=== PATIENT | female | born 1935 | race African-American/Black ===

== ENCOUNTER 2017-12-24 11:41 | Emergency (ER) | payer OTHER, MEDICARE ==
[~2017-12-24] VITALS: Ht 152.4 cm; Wt 79.4 kg
--- NOTE | 2017-12-24 12:03 | ED GI/GU/ABDOMINAL COMPLAINT ---
History of Present Illness General Chief Complaint: General Adult Stated Complaint: RIGHT SIDED FLANK PAIN Source: patient, family, old records Exam Limitations: no limitations Vital Signs & Intake/Output Vital Signs & Intake/Output Vital Signs Date Time Temp Pulse Resp B/P B/P Pulse O2 O2 Flow FiO2 Mean Ox Delivery Rate 12/24 1422 97.9 68 18 174/74 95 Room Air 12/24 1226 80 18 173/82 95 Room Air 12/24 1155 97.8 80 18 207/93 97 Room Air Allergies Coded Allergies: NO KNOWN ALLERGIES (12/03/13) Reconcile Medications Atorvastatin Calcium (Lipitor) 40 MG TABLET 1 TAB PO DAILY CHOLESTEROL ( Reported) Ramipril (Altace) 5 MG CAPSULE 2 CAP PO DAILY UNKNOWN (Reported) Triage Note: PT BIBA C/O RIGHT SIDED FLANK PAIN 03/28. PT ALSO C/O OF WEAKNESS AND STATES THAT SHE IS SOB ALL THE TIME. PT DID NOT TAKE HER BP MEDICATIONS THIS AM AND PER EMS BP 200/110 Triage Nurses Notes Reviewed? yes ? N Is pt currently ? No Onset: Abrupt Duration: week(s): (3), constant, continues in ED Quality/Severity: moderate, sharpness Location: right lower quadrant Radiation: no radiation Activities at Onset: none Prior Abdominal Problems: none No Modifying Factors: none HPI: 82-year-old female comes into the emergency room for further evaluation of right -sided abdominal pain. Symptoms been going on for the past 3 weeks. She reports increased frequency of urination which is chronic for her. She has chronic incontinence issues. She denies any back pain. She denies any chest pain shortness of breath. Denies any fever chills or vomiting. Nothing seems to make the symptoms better. She lives at home with her granddaughter. She dresses herself and a self. She cooks her own meals. She cleans her own house. She is a high functioning 82-year-old female. (Ciaran Rajan) Past History Travel History Traveled to [place] past 21 day No Medical History Any Pertinent Medical History? see below for history Cardiovascular: HYPERTENSION HYPERLIPIDEMIA Influenza Vaccine: 05/19/13 Surgical History Surgical History: non-contributory Psychosocial History What is your primary language Citizen Of [place] Tobacco Use: Never used ETOH Use: denies use Family History Hx Contributory? No (Ciaran Rajan) Review of Systems Review of Systems Constitutional: Reports: no symptoms. EENTM: Reports: no symptoms. Respiratory: Reports: no symptoms. Cardiovascular: Reports: no symptoms. GI: Reports: see HPI. Genitourinary: Reports: see HPI. Musculoskeletal: Reports: no symptoms. Skin: Reports: no symptoms. Neurological/Psychological: Reports: no symptoms. Hematologic/Endocrine: Reports: no symptoms. Immunologic/Allergic: Reports: no symptoms. All Other Systems: Reviewed and Negative (Ciaran Rajan) Physical Exam Physical Exam General Appearance: well developed/nourished, alert, awake Head: atraumatic Eyes: Bilateral: normal appearance. Ears, Nose, Throat, Mouth: hearing grossly normal, moist mucous membrane Neck: normal inspection Respiratory: normal breath sounds, no respiratory distress Cardiovascular: regular rate/rhythm Gastrointestinal: soft, tenderness (MILD RLQ), no guarding, no rebound tenderness Rectal: heme positive stool, no gross blood, external hemorrhoids Back: normal inspection Extremities: normal range of motion Neurologic/Psych: awake, alert, oriented x 3 Skin: intact, normal color Core Measures ACS in differential dx? No Sepsis Present: No Sepsis Focused Exam Completed? No (Ciaran Rajan) Progress Differential Diagnosis: AMI, appendicitis, bowel obstruction, diverticulitis, kidney stone, UTI/pyelo Plan of Care: Orders Procedure Date/time Status LACTIC ACID 12/24 1502 Complete URINALYSIS 12/24 1202 Complete TROPONIN LEVEL 12/24 1202 Complete LIPASE 12/24 1202 Complete LACTIC ACID 12/24 1202 Complete COMPREHENSIVE METABOLIC PANEL 12/24 1202 Complete CBC WITHOUT DIFFERENTIAL 12/24 1202 Complete AMYLASE 12/24 1202 Complete EKG 12/24 1151 Active Laboratory Tests 12/24/17 1654: Lactic Acid 1.8 12/24/17 1505: Urine Color YEL, Urine Clarity CLEAR, Urine pH 6.0, Ur Specific Douglas 1.015, Urine Protein NEG, Urine Ketones NEG, Urine Nitrite NEG, Urine Bilirubin NEG, Urine Urobilinogen 0.2, Ur Leukocyte Esterase SMALL H, Ur Microscopic SEDIMENT EXAMINED, Urine RBC 1-3, Urine WBC 1-3 H, Ur Epithelial Cells FEW, Urine Bacteria RARE H, Urine Hemoglobin MOD H, Urine Glucose NEG 12/24/17 1220: Anion Gap 12, Estimated GFR 31 L, BUN/Creatinine Ratio 11.9, Glucose 86, Lactic Acid 2.2 H, Calcium 9.5, Total Bilirubin 1.5 H, AST 28, ALT 23, Alkaline Phosphatase 156 H, Troponin I < 0.01, Total Protein 7.5, Albumin 4.0, Globulin 3.5, Albumin/Globulin Ratio 1.1, Amylase 79, Lipase 114, CBC w Diff NO MAN DIFF REQ, RBC 4.60, MCV 90.1, MCH 29.8, MCHC 33.0, RDW 15.4 H, MPV 12.2 H, Gran % 66.0, Lymphocytes % 24.0, Monocytes % 8.4, Eosinophils % 1.3, Basophils % 0.3, Absolute Granulocytes 5.5, Absolute Lymphocytes 2.0, Absolute Monocytes 0.7 H, Absolute Eosinophils 0.1, Absolute Basophils 0 Diagnostic Imaging: Viewed by Me: CT Scan. Discussed w/RAD: CT Scan. Radiology Impression: PATIENT: ANNA AVILA PRESENT AGE: 82 PATIENT ACCOUNT NO: [id number] : 35 LOCATION: [facility] ORDERING PHYSICIAN: Ciaran ZARAGOZA SERVICE DATE: 12/24/17 EXAM TYPE : CAT - CT ABD & PELVIS W/O IV CONTRAS EXAMINATION: CT ABDOMEN AND PELVIS WITHOUT CONTRAST CLINICAL INFORMATION: Right-sided abdominal pain. COMPARISON: CT scan of the lumbar spine dated 02/24/2013. TECHNIQUE: Multidetector volumetric imaging was performed from the superior aspect of the liver through the pubic symphysis. Sagittal and coronal reformatted images were obtained on the technologist workstation. DLP: 368.63 mGy-cm. FINDINGS: LUNG BASES: The visualized lung bases are unremarkable. LIVER, GALLBLADDER, AND BILIARY TREE: The liver is mildly atrophic with a prominent lobulated contour and trace amount of perihepatic ascites. The ascites is also seen extending into the paracolic gutters to the pelvis. Findings raise the suspicion of liver cirrhosis. No focal hepatic lesion on noncontrast imaging. No biliary ductal dilatation is present. The patient is status post cholecystectomy with multiple lashonda seen in the gallbladder fossa. PANCREAS: Mildly atrophic, but otherwise unremarkable on noncontrast imaging. SPLEEN, ADRENAL GLANDS: Unremarkable on noncontrast imaging. KIDNEYS AND URETERS: The kidneys are normal in size, shape, and attenuation. No hydronephrosis, hydroureter, or calculi seen. No perinephric stranding. There are multiple variably sized low-attenuation masses in the kidneys bilaterally, consistent with cysts, largest of which is seen in the mid left kidney (series 2, image 30) disease, measuring 5.9 cm in diameter. BLADDER: Unremarkable. PELVIC VISCERA: The uterus is anteverted and anteflexed and abnormally enlarged, measuring 14.8 x 8.1 x 11.4 cm. Abnormal lobulated contour of the uterus is seen and there is no distinction between the uterine myometrium and endometrium. There is a 2.5 x 2.2 cm mass in the left adnexa (series 2, image 48), unclear if related to an exophytic uterine mass, such as a fibroid versus an enlarged ovary. The right ovary is not visualized. GASTROINTESTINAL TRACT: There is some fullness at the GE junction, likely due to small hiatal hernia. The small and large bowel are unremarkable. The appendix is unremarkable. ABDOMINAL WALL: There is a tiny fat-containing umbilical hernia. In the infraumbilical region, a 2 cm caudal to the umbilicus, a 0.9 cm peritoneal defect is seen with herniation of a tiny segment of the small bowel loops (series 601, image 77). No evidence of bowel obstruction or perforation is seen. Small and large bowel loops are decompressed and grossly unremarkable. Appendix is not discretely visualized. LYMPH NODES, VASCULAR: There is a 1.4 x 0.9 cm nodule in the right epiphrenic fat (series 2, image 9), likely a mildly enlarged lymph node. Several retroperitoneal lymph nodes are seen, measuring up to 1.3 cm in the left para-aortic space (series 2, image 29). Mild atherosclerotic calcifications of the aorta. OSSEOUS STRUCTURES: There is diffuse osteopenia with severe degenerative disc disease seen throughout the lumbar spine with disc space narrowing, vertebral endplate spurring and vacuum disc phenomenon seen. Bulky marginal spur formation is also seen along the left lateral margin of T12-L1 and L2. Calcification along the anterior longitudinal ligament in the lower thoracic spine is seen. Moderate facet arthropathy is present in the lower lumbar spine. Vacuum phenomenon is seen in the sacroiliac joints bilaterally. IMPRESSION: 1. Abnormally enlarged and lobulated uterus is seen, possibly due to a fibroid uterus. However, the uterus is incompletely assessed on this noncontrast exam. Left ovary may be enlarged or there may be a left adnexal mass. Right ovary is not seen. Further evaluation with nonemergent pelvic MRI scan is recommended to clarify findings. 2. Liver findings are suspicious for cirrhosis with associated small volume ascites seen in the abdomen. 3. Abnormal right epiphrenic and retroperitoneal adenopathy is seen. Etiology is uncertain and close clinical correlation is requested. 4. Status post cholecystectomy with no evidence of biliary dilatation. 5. Tiny paraumbilical midline ventral wall hernia, containing a tiny segment of a nonobstructed loop of small bowel. DICTATED BY: Nelda Santillan MD DATE/TIME DICTATED:12/24/171345 ENGINEER CHIEF:ORA DATE/TIME TRANSCRIBED:1345 CONFIDENTIAL, DO NOT COPY WITHOUT APPROPRIATE AUTHORIZATION. < Electronically signed in Other Vendor System> SIGNED BY: Nelda Santillan MD 12/24/17 1420 Initial ED EKG: normal sinus rhythm, rate (78) (Sin ZARAGOZA,Ciaran) Departure Departure Disposition: HOME OR SELF CARE Condition: Stable Clinical Impression Primary Impression: Abdominal pain Secondary Impressions: Uterine enlargement Referrals: Suze PUENTE,Indio Wright MD,Adry (PCP/Family) Additional Instructions: Follow-up with surgical elastic knitter tomorrow. Return if any concerns worsening symptoms. You will require a MRI of abdomen. This will be to evaluate for any type of malignancy. Please go over all results of today's visit with your primary care doctor. Contact your primary care doctor to let them know you were here in the emergency room. There may be nonspecific findings which may not be related to your visit today here in the emergency room but may require further evaluation and chronic monitoring by your primary care doctor. If you had a laceration today the chance of foreign body always remains. You should follow-up with your primary care doctor for recheck in 3-5 days for a wound check. If you had an x-ray done there is a chance that a fracture could have been missed on initial read and you should follow-up with your primary care doctor for repeat x-rays if symptoms persist. If your blood pressure was elevated here in the emergency room please have rechecked by [facility] primary care doctor within the next 48. If you were prescribed a narcotic here in the emergency room or any type of controlled substances you're not allowed to drive while taking this medication or operate any type of heavy machinery. Narcotics can make you feel lightheaded dizziness nausea and can cause constipation. You may need to pick up truck driver a stool softener. Thank you for choosing [facility] emergency room. Please return to the emergency room immediately if you have any other concerns worsening of symptoms. Departure Forms: Customer Survey General Discharge Information Comments 12/24/2017 6:58:35 PM Patient clinically looks well. Patient is in no apparent distress. Patient is nontoxic-appearing. Went over CAT scan results with the patient and family. I explained the importance of close follow-up. I spoke with the patient's CLINICAL SERVICES PROFESSIONAL doctor Suze . He will follow up with her in the office tomorrow to order the MRI. I explained to the patient the concern for ruling out malignancy. Her blood work is overall within normal limits. No gross blood on rectal exam but it was positive guaiac. (Sin ZARAGOZA,Ciaran) Departure Comments I saw and personally evaluated the patient and I agree with the [facility] evaluation and plan of care. (Dante Puente DO)
[2017-12-24 12:43] LABS: ABSOLUTE BASOPHIL COUNT 0 /CUMM (0.0-0.2); ABSOLUTE EOSINOPHIL COUNT 0.1 /CUMM (0.0-0.7); ABSOLUTE GRANULOCYTE CT 5.5 /CUMM (1.4-6.5); ABSOLUTE MONOCYTE COUNT 0.7 /CUMM (0.10-0.60); BASOPHIL % 0.3 % (0.0-2.0); EOSINOPHIL % 1.3 % (0-5); HEMATOCRIT 41.5 % (37-47); MEAN CORPUSCULAR HGB 29.8 PG (27.0-31.0); MEAN CORPUSCULAR VOLUME 90.1 FL (81.0-99.0); MEAN PLATELET VOLUME 12.2 FL (7.4-10.4); PLATELET COUNT 112 /CUMM (130-400); RBC DISTRIBUTION WIDTH 15.4 % (11.5-14.5); WHITE BLOOD CELL COUNT 8.3 /CUMM (4.8-10.8)
--- NOTE | 2017-12-24 14:20 | CT SCAN REPORT ---
EXAMINATION: CT ABDOMEN AND PELVIS WITHOUT CONTRAST CLINICAL INFORMATION: Right-sided abdominal pain. COMPARISON: CT scan of the lumbar spine dated 02/24/2013. TECHNIQUE: Multidetector volumetric imaging was performed from the superior aspect of the liver through the pubic symphysis. Sagittal and coronal reformatted images were obtained on the technologist workstation. DLP: 368.63 mGy-cm. FINDINGS: LUNG BASES: The visualized lung bases are unremarkable. LIVER, GALLBLADDER, AND BILIARY TREE: The liver is mildly atrophic with a prominent lobulated contour and trace amount of perihepatic ascites. The ascites is also seen extending into the paracolic gutters to the pelvis. Findings raise the suspicion of liver cirrhosis. No focal hepatic lesion on noncontrast imaging. No biliary ductal dilatation is present. The patient is status post cholecystectomy with multiple lashonda seen in the gallbladder fossa. PANCREAS: Mildly atrophic, but otherwise unremarkable on noncontrast imaging. SPLEEN, ADRENAL GLANDS: Unremarkable on noncontrast imaging. KIDNEYS AND URETERS: The kidneys are normal in size, shape, and attenuation. No hydronephrosis, hydroureter, or calculi seen. No perinephric stranding. There are multiple variably sized low-attenuation masses in the kidneys bilaterally, consistent with cysts, largest of which is seen in the mid left kidney (series 2, image 30) disease, measuring 5.9 cm in diameter. BLADDER: Unremarkable. PELVIC VISCERA: The uterus is anteverted and anteflexed and abnormally enlarged, measuring 14.8 x 8.1 x 11.4 cm. Abnormal lobulated contour of the uterus is seen and there is no distinction between the uterine myometrium and endometrium. There is a 2.5 x 2.2 cm mass in the left adnexa (series 2, image 48), unclear if related to an exophytic uterine mass, such as a fibroid versus an enlarged ovary. The right ovary is not visualized. GASTROINTESTINAL TRACT: There is some fullness at the GE junction, likely due to small hiatal hernia. The small and large bowel are unremarkable. The appendix is unremarkable. ABDOMINAL WALL: There is a tiny fat-containing umbilical hernia. In the infraumbilical region, a 2 cm caudal to the umbilicus, a 0.9 cm peritoneal defect is seen with herniation of a tiny segment of the small bowel loops (series 601, image 77). No evidence of bowel obstruction or perforation is seen. Small and large bowel loops are decompressed and grossly unremarkable. Appendix is not discretely visualized. LYMPH NODES, VASCULAR: There is a 1.4 x 0.9 cm nodule in the right epiphrenic fat (series 2, image 9), likely a mildly enlarged lymph node. Several retroperitoneal lymph nodes are seen, measuring up to 1.3 cm in the left para-aortic space (series 2, image 29). Mild atherosclerotic calcifications of the aorta. OSSEOUS STRUCTURES: There is diffuse osteopenia with severe degenerative disc disease seen throughout the lumbar spine with disc space narrowing, vertebral endplate spurring and vacuum disc phenomenon seen. Bulky marginal spur formation is also seen along the left lateral margin of T12-L1 and L2. Calcification along the anterior longitudinal ligament in the lower thoracic spine is seen. Moderate facet arthropathy is present in the lower lumbar spine. Vacuum phenomenon is seen in the sacroiliac joints bilaterally. IMPRESSION: 1. Abnormally enlarged and lobulated uterus is seen, possibly due to a fibroid uterus. However, the uterus is incompletely assessed on this noncontrast exam. Left ovary may be enlarged or there may be a left adnexal mass. Right ovary is not seen. Further evaluation with nonemergent pelvic MRI scan is recommended to clarify findings. 2. Liver findings are suspicious for cirrhosis with associated small volume ascites seen in the abdomen. 3. Abnormal right epiphrenic and retroperitoneal adenopathy is seen. Etiology is uncertain and close clinical correlation is requested. 4. Status post cholecystectomy with no evidence of biliary dilatation. 5. Tiny paraumbilical midline ventral wall hernia, containing a tiny segment of a nonobstructed loop of small bowel.
[2017-12-24 14:22] VITALS: BP 174/74
[2017-12-24] MEDS ORDERED: ALTACE5 M2 PO (14:26)
[2017-12-24] MEDS ORDERED: LIPITOR40 M1 PO (14:27)
== END 2017-12-24 17:41 ==
LOC: ERH 11:41
PROVIDERS: Physician Assistant Medical
DX: N85.2 Hypertrophy of uterus (principal)
CPT/HCPCS: 74176; 81001; 93005; 93010